=== PATIENT | male | born 1965 | race Caucasian/White ===

== ENCOUNTER 2018-07-22 13:24 | Observation (INO) ==
[2018-07-22] MEDS ORDERED: KETOROLAC TROMETHAMINE 15 MG/ML VIAL IV ONE (14:16)
[2018-07-22] MEDS ORDERED: SODIUM CHLORIDE 0.9% 1000ML 1,000 ML IV ONE (14:17)
[2018-07-22 14:39] LABS: Basophils # (auto) 0.06 K/uL (0-0.2); Basophils % (auto) 0.4 %; Eosinophils % (auto) 0.7 %; Hematocrit (blood only) 43.5 % (42-52); Hemoglobin 15.4 g/dL (14.0-18.0); Immature Granulocytes # (auto) 0.05 K/uL (0.00-0.02); Immature Granulocytes % (auto) 0.4 %; Lymphocytes # (auto) 1.74 K/uL (1.2-3.4); Lymphocytes % (auto) 12.4 %; Mean Corpuscular Hgb Conc 35.4 g/dL (32-36); Mean Corpuscular Volume 88.1 fL (80-100); Mean Platelet Volume 9.9 fL (7.4-10.4); Monocytes # (auto) 1.07 K/uL (0.11-0.59); Monocytes % (auto) 7.6 %; Neutrophils # (auto) 11.06 K/uL (1.4-6.5); Neutrophils % (auto) 78.5 %; Platelet Count 167 K/uL (130-400); RDW Coefficient of Variation 12.7 % (11.5-14.5); RDW Standard Deviation 40.7 fL (36.4-46.3); Red Blood Count 4.94 M/uL (4.7-6.1); White Blood Count 14.08 K/uL (4.8-10.8)
[2018-07-22 14:56] LABS: Albumin Level 3.5 gm/dl (3.4-5.0); BUN Creatinine Ratio 12.9 (10-20); Calcium 9.3 mg/dl (8.5-10.1); Creatinine Clr Calc Pharmacy 112.6 ml/min; Est GFR (Non-African American) 94.1; Potassium 4.2 mmol/L (3.5-5.1)
[2018-07-22 14:59] LABS: Albumin Globulin Ratio 0.8 (0.9-2); Bilirubin,Total 0.9 mg/dl (0.2-1); Globulin 4.4 gm/dl (2.5-4.0); Total Protein 7.9 gm/dl (6.4-8.2)
--- NOTE | 2018-07-22 15:16 | CT Scan Report ---
CT SCAN OF THE ABDOMEN AND PELVIS WITHOUT IV CONTRAST CLINICAL HISTORY: Right lower quadrant abdominal pain. COMPARISON STUDY: Abdominal CT dated 06/13/2017. TECHNIQUE: CT scan of the abdomen and pelvis is performed from the lung bases to the proximal femora. Images are reviewed in the axial, sagittal, and coronal planes. IV contrast was not administered for this examination as per the referring clinician. Note that the examination is suboptimal without IV contrast. A dose lowering technique was utilized adhering to the principles of ALARA. CT DOSE: 578.74 mGy.cm FINDINGS: Lung bases: The heart is normal in size and without pericardial effusion. The lung bases are clear. T here is a small hiatal hernia. Liver: The unenhanced liver is enlarged, measuring 21.7 cm in length. The liver demonstrates diffusel y diminished attenuation consistent with hepatic steatosis. There is no intrahepatic biliary ductal d ilatation. Gallbladder: Unremarkable. Spleen: The spleen is mildly enlarged measuring 14 cm in length. Pancreas: Unremarkable. Adrenal glands: Unremarkable. Kidneys: The unenhanced kidneys are normal in size and without hydronephrosis. There are no renal damari culi identified. There is no evidence of contour deforming renal mass lesion. Cortical scarring is no dave in the lower pole of the right kidney. Abdominal vasculature: The abdominal aorta is normal in course and caliber noting moderate atheroscle rotic calcification. Bowel: There is mild colonic fecal retention. No bowel obstruction is seen. The appendix is distended and fluid-filled, measuring up to 15 mm in diameter as seen on image 309. The appendiceal wall is th ickened and there are several calcified appendicoliths. There is periappendiceal inflammation and flu id, and the appearance is consistent with acute appendicitis. The degree of surrounding inflammation and fluid suggests possible perforation. No organized fluid collection is seen on this unenhanced exa mination to indicate abscess. Peritoneum: There is no intraperitoneal free air. Free fluid is noted in the right lower quadrant in the right paracolic gutter. There is evidence of previous ventral hernia repair. Lymphadenopathy: None. Pelvic viscera: The bladder, prostate, and seminal vesicles are normal as visualized. There are small bilateral fat-containing inguinal hernias. Skeletal structures: No lytic or blastic lesions are seen. IMPRESSION: 1. Findings are consistent with severe acute appendicitis. The degree of surrounding inflammation and fluid suggests possible perforation. 2. No intraperitoneal free air is identified. No organized fluid collection is seen on this unenhance d examination to indicate abscess. 3. Hepatomegaly and hepatic steatosis. 4. Splenomegaly. 5. Additional findings as above. Electronically signed by: Gilberto Casas M.D. 07/22/2018 3:15 PM
[2018-07-22] MEDS ORDERED: PIPERACILL/TAZOBAC CONSULT ACTIVE PRN ×2 (15:32→19:03)
[2018-07-22] MEDS ORDERED: PIPERACILLIN/TAZOBACTAM 4.5 GM/120 ML BAG IV ONE (15:32)
[2018-07-22] MEDS ORDERED: HYDROmorphone INJ 1 MG/ML SYRINGE IV PRN ×2 (15:32→16:36)
--- NOTE | 2018-07-22 16:03 | History & Physical Report ---
Date of Service July 22, 2018 Assessment & Plan (1) Acute appendicitis: Will plan for laparoscopic appendectomy, possible open. Zosyn was given in the ED. as above. acute appendicitis. discussed risks ( bleeding/infection/dvt/pe/mi/cva/injury to another organ etc...) Questions answered. will proceed with lap/possible open appy taqueria. pt has an umbilical hernia that bothers him frequently as well. will attempt to repair also if possible. History of Present Illness 53 y/o male with abdominal pain that began yesterday. Had nausea vomiting last night. Pain persisted today, came to the ED. Hot/cold flashes, anorexia today. Had a few sips of water earlier this morning. Primary Care Provider: Tan Solis MD Allergies Allergy/AdvReac Type Severity Reaction Status Date / Time No Known Allergies Allergy Unverified 07/22/18 14:20 Home Medications Home Medications Medication Instructions Recorded Confirmed Type lisinopril-hydrochlorothiazide 1 tab PO DAILY 07/22/18 07/22/18 History metoprolol tartrate 100 mg PO DAILY 07/22/18 07/22/18 History Past Med/Surg History Medical History Hypertension Inguinal hernia Social History Feels Safe at Home: Yes Smoking Status: Current every day smoker Review of Systems Constitutional: + chills, + malaise and + anorexia Respiratory: no cough and no dyspnea on exertion Cardiovascular: no chest pain and no chest pain with activity Gastrointestinal: + abdominal pain, + nausea and + vomiting Physical Exam Constitutional: WD/WN, vitals as above Respiratory: normal respiratory effort, lungs clear to auscultation Cardiovascular: RRR, no murmur, no edema Gastrointestinal (Abdomen): Percussion/Palpation: + abdomen tender (RLQ), + guarding and + hernia (umbilical) Skin: no rashes, warm and dry Results & Data Vital Signs (Past 12 Hours) Vital Signs Temp Pulse Pulse Resp BP BP Pulse Ox 07/22/18 15:09 90 18 141/91 H 97 07/22/18 13:44 37.2 C 106 H 17 134/[address] DOSE: 578.74 mGy.cm FINDINGS: Lung bases: The heart is normal in size and without pericardial effusion. The lung bases are clear. There is a small hiatal hernia. Liver: The unenhanced liver is enlarged, measuring 21.7 cm in length. The liver demonstrates diffusely diminished attenuation consistent with hepatic steatosis. There is no intrahepatic biliary ductal dilatation. Gallbladder: Unremarkable. Spleen: The spleen is mildly enlarged measuring 14 cm in length. Pancreas: Unremarkable. Adrenal glands: Unremarkable. Kidneys: The unenhanced kidneys are normal in size and without hydronephrosis. There are no renal calculi identified. There is no evidence of contour deforming renal mass lesion. Cortical scarring is noted in the lower pole of the right kidney. Abdominal vasculature: The abdominal aorta is normal in course and caliber noting moderate atherosclerotic calcification. Bowel: There is mild colonic fecal retention. No bowel obstruction is seen. The appendix is distended and fluid-filled, measuring up to 15 mm in diameter as seen on image 309. The appendiceal wall is thickened and there are several calcified appendicoliths. There is periappendiceal inflammation and fluid, and the appearance is consistent with acute appendicitis. The degree of surrounding inflammation and fluid suggests possible perforation. No organized fluid collection is seen on this unenhanced examination to indicate abscess. Peritoneum: There is no intraperitoneal free air. Free fluid is noted in the right lower quadrant in the right paracolic gutter. There is evidence of previous ventral hernia repair. Lymphadenopathy: None. Pelvic viscera: The bladder, prostate, and seminal vesicles are normal as visualized. There are small bilateral fat-containing inguinal hernias. Skeletal structures: No lytic or blastic lesions are seen. IMPRESSION: 1. Findings are consistent with severe acute appendicitis. The degree of surrounding inflammation and fluid suggests possible perforation. 2. No intraperitoneal free air is identified. No organized fluid collection is seen on this unenhanced examination to indicate abscess. 3. Hepatomegaly and hepatic steatosis. 4. Splenomegaly. 5. Additional findings as above. Electronically signed by: Gilberto Casas M.D. 07/22/2018 3:15 PM
[2018-07-22] MEDS ORDERED: GLYCOPYRROLATE 0.2 MG/ML VIAL ONE (16:04)
[2018-07-22] MEDS ORDERED: NEOSTIGMINE METHYLSULFATE 5 MG/5 ML SYR ONE (16:04)
[2018-07-22] MEDS ORDERED: MIDAZOLAM HCL 1 MG/ML 2ML VIAL ONE (16:04)
[2018-07-22] MEDS ORDERED: LIDOCAINE HCL 2% 2 ML VIAL/AMP(20MG/ML) INFIL ONE (16:04)
[2018-07-22] MEDS ORDERED: DEXAMETHASONE SOD INJ 4 MG/ML VIAL ONE (16:04)
[2018-07-22] MEDS ORDERED: PROPOFOL IV EMULSION 10 MG/ML 20 ML VIAL IV ONE (16:04)
[2018-07-22] MEDS ORDERED: fentaNYL citrate 100 MCG/2 ML VIAL ONE ×2 (16:04→17:40)
[2018-07-22] MEDS ORDERED: ONDANSETRON INJ 2 MG/ML 2 ML VIAL ONE (16:04)
[2018-07-22] MEDS ORDERED: BUPIVACAINE/EPINEPHRINE 0.5% MPF 1:200,000 30 ML VIAL ONE (16:10)
[2018-07-22] MEDS ORDERED: NALOXONE HCL 0.4 MG/1 ML VIAL/CARP IV PRN (16:36)
[2018-07-22] MEDS ORDERED: LABETALOL HCL IV 5 MG/ML 20ML IV PRN (16:36)
[2018-07-22] MEDS ORDERED: FLUMAZENIL 0.1 MG/1 ML 10 ML VIAL IV PRN (16:36)
[2018-07-22] MEDS ORDERED: PROMETHAZINE HCL 12.5 MG in SODIUM CHLORIDE 0.9% 50 ML IV PRN (16:36)
[2018-07-22] MEDS ORDERED: ePHEDrine sulfate 50 MG/ML AMP IV PRN (16:36)
[2018-07-22] MEDS ORDERED: ONDANSETRON INJ 2 MG/ML 2 ML VIAL IV PRN ×2 (16:36→19:03)
[2018-07-22] MEDS ORDERED: ATROPINE SULFATE 0.1 MG/ML 10ML SYR IV PRN (16:36)
--- NOTE | 2018-07-22 16:36 | Anesthesiology Consultation ---
Date of Service July 22, 2018 Assessment & Plan Chart Review Chart Review: Acceptable Risk for Surgery and Patient NOT seen in Pre Admission Testing Consults Requested none ASA [id number] Proposed Anesthesia Anesthesia Type: General Risk / Benefits Reviewed With: PT / POA / Parent / Guardian, Accepts Plan and Informed Consent Obtained History Surgery Operation Date: 07/22/18 17:15 Proposed Procedures p Laparoscopic Appendectomy - Dontrell Alegre, DO Height/Weight Height: 6 ft Weight: 97.8 kg Allergies Allergy/AdvReac Type Severity Reaction Status Date / Time No Known Allergies Allergy Unverified 07/22/18 14:20 Medications Home Medications Medication Instructions Recorded Confirmed Last Taken lisinopril-hydrochlorothiazide 1 tab PO DAILY 07/22/18 07/22/18 Unknown metoprolol tartrate 100 mg PO DAILY 07/22/18 07/22/18 Unknown Active Medications Generic Name Dose Route Start Last Admin Trade Name Freq PRN Reason Stop Dose Admin Hydromorphone HCl 1 mg 07/22/18 15:32 07/22/18 15:47 Dilaudid IV 08/05/18 15:31 1 mg Q15M PRN Administration Pain NPO Date Last Intake of Fluids: 07/22/18 Time Last Intake of Fluids: 07:00 Date Last Intake of Solids: 07/21/18 Time Last Intake of Solids: 14:30 Past Medical History Medical History COPD (chronic obstructive pulmonary disease) GERD (gastroesophageal reflux disease) Hypertension Inguinal hernia Obese Exercise / Class Metabolic Activity II 4-5 Yardwork/Stairs/Walk up hill Past Anesthesia History No Hx of Anesthesia Complications and No Family Hx of Anesthesia Complications History of PONV No Hx of PONV and No Hx of Motion Sickness Social History Smoking Status: Heavy tobacco smoker Smoking cigarettes per day: 1 1/2 - 2PPD x 40 + years Physical Exam Vital Signs Last Vital Signs Temp 37.2 C 07/22/18 13:44 Pulse 94 H 07/22/18 16:00 Resp 13 07/22/18 16:00 BP 144/92 H 07/22/18 16:00 Pulse Ox 95 07/22/18 16:00 Constitutional + obese ENMT Mouth: + edentulous and + poor dentition Thyromental Distance: > or= 3.5 Finger Breadths Mallampati Class: II Neck normal visual inspection, trachea midline and + facial hair; neck extension not limited Respiratory normal respiratory effort Auscultation: lungs clear to auscultation bilaterally Cardiovascular Rate/Rhythm: regular rate and regular rhythm Heart Sounds: no murmur Vessels: no carotid bruit Musculoskeletal Spine: normal cervical ROM Neurologic moves all extremities Motor/Sensory: no sensory deficit Psychiatric Orientation: alert and oriented x 3 Testing Laboratory Results WBC: Hcg: Hct: PLATELETS: SODIUM: POTASSIUM: CHLORIDE: CO2: BUN: CREATININE: GLUCOSE: PT: PTT: INR: 07/22/18 14:30 07/22/18 14:30 UA: TYPE AND SCREEN: Electrocardiogram Date: 07/22/18 Findings: + NSR @ (at 93)
[2018-07-22] MEDS ORDERED: SUCCINYLCHOLINE CHLORIDE 20 MG/ML 10 ML VIAL ONE (17:13)
--- NOTE | 2018-07-22 17:57 | Operative Report ---
Post Operative Report Pre & Post Diagnosis Operation Date: 07/22/18 17:15 Pre-Op Diagnosis: acute appendicitis. umbilical hernia. Post-Op Diagnosis: acute appendicitis. adhesions. Procedure Operation Date: 07/22/18 17:15 Actual Procedures p Laparoscopic Appendectomy(Not Applicable) Enterolysis- Dontrell Alegre DO Surgeon Dontrell Alegre DO Manager Of Revenue jef Arriaga Estimated Blood Loss 5 Findings Consistent with Post-Op Diagnosis Specimens appendix Description of Procedure After informed consent was obtained the patient was taken to the operating room and placed in supine position. After successful intubation a Beltran catheter was placed. The abdomen was then shaved and sterilely prepped and draped in usual fashion. The patient had the appearance of an umbilical hernia. This had been bothering him so we made an incision in the supraumbilical region. We carried this down through soft tissue using cautery. Anterior rectus fascia was opened using electrocautery and two #0 Vicryl stay sutures were placed. Peritoneum was entered using blunt finger penetration and a finger sweep was performed. This revealed a mesh that the patient had been unsure of if he had or not. There were adhesions densely adhered to the undersurface. I was able to insert the Sidhu trocar and insufflated the abdomen to 18 mmHg. A 30 degree laparoscope was inserted. We were able to see in the left lower quadrant. I was able to place a suprapubic 5 mm port in the left lower quadrant 12 mm port. We then inserted the camera and looked up at the umbilical trocar site. There were a lot of dense adhesions which made visualization through that port impossible. We therefore placed a left mid abdominal 5 mm trocar. We were able to come t hrough this site and take down the adhesions using the harmonic scalpel. These involved colon and omentum. I suspect these adhesions were the source of his chronic damaris-umbilical pain. There was no recurrent hernia there. Next we placed the patient in a Trendelenburg position and slightly air planed to the left. There was alot of inflammation near the cecum. I was able to roll the cecum medially exposing a necrotic but non perforated appendicitis. There was small amount of purulent fluid in the right lower quadrant and in the pelvis which we immediately suctioned out. The base of the appendix at the junction with the cecum was the only part that was not black and necrotic. I was able to make a small window in the mesoappendix right near its base and transected the appendix with a KE purple cartridge linear stapler. Once this was done I examined the mesentery of the appendix. It was very short and thick and making using a stapler quite difficult. I therefore used a harmonic scalpel to come through the mesentery of the appendix just below the serosa of the appendix itself. Once I completely transected the mesentery I placed the appendix into an Endo Catch bag and removed it from the left lower quadrant incision to keep it away from the surgical mesh. We then thoroughly irrigated the right lower quadrant and the pelvis. There was adequate hemostasis. The staple line looked solid. We ran the small bowel backwards for about 4 5 feet all this was normal. No other gross abnormalities were identified. The trochars were subsequently all removed and the abdomen desufflated. Prior to doing this we did place a 10 flat Jonathan-Bell drain into the right lower quadrant and brought out through the left lower quadrant port site. All wounds were then thoroughly irrigated. The fascia of the camera port was closed using 0 Vicryl in a [id number] fashion. All the wounds were irrigated and closed using 4-0 Monocryl. Half percent Marcaine with epinephrine were injected around all the incisions for postoperative analgesia. Dermabond glue and sterile dressings were applied. The drain was sewn in using 0 Vicryl. The patient was awaken extubated and transferred recovery in stable condition. My physician child welfare assistant was present for the entire case. He will prep the patient. He helped run the camera during my dissection. He also helped with wound closure and dressing placement. I attest to the content of the Intraoperative Record and any orders documented therein. Any exceptions are noted below.
--- NOTE | 2018-07-22 18:32 | Anesthesiology Progress Note ---
Date of Service July 22, 2018 Anesthesia Post Procedure Vital Signs Vital Signs: Temp Pulse Pulse Pulse Resp BP BP 07/22/18 18:20 93 H 20 123/77 07/22/18 18:10 94 H 24 126/74 07/22/18 18:00 37.7 C H 100 H 18 136/96 07/22/18 16:34 37.1 C 94 H 19 140/91 07/22/18 16:00 94 H 13 144/92 H 07/22/18 15:37 102 H 16 07/22/18 15:30 99 H 20 142/90 H 07/22/18 15:09 90 18 141/91 H 07/22/18 13:44 37.2 C 106 H 17 134/84 Pulse Ox 07/22/18 18:20 93 07/22/18 18:10 95 07/22/18 18:00 95 07/22/18 16:34 95 07/22/18 16:00 95 07/22/18 15:37 07/22/18 15:30 07/22/18 15:09 97 07/22/18 13:44 97 Pain Intensity Right Lower Abdomen: Pain Intensity: 3 Transfer of Care Handoff Completed per policy Notes Mental Status: alert / awake / arousable Patient Amnestic to Procedure: Yes Nausea / Vomiting: adequately controlled Pain: adequately controlled Airway Patency, RR, SpO2: stable & adequate BP & HR: stable & adequate Hydration State: stable & adequate Anesthetic Complications: no major complications apparent
[2018-07-22] MEDS ORDERED: MoRPHine SULFATE 4 MG/ML 1 ML CARP\\VIAL IV PRN (19:03)
[2018-07-22] MEDS ORDERED: MoRPHine SULFATE 4 MG/ML 1 ML CARP\\VIAL ONE (19:11)
[2018-07-22] MEDS: NICOTINE 14 MG/24 HR PATCH TD SCH (20:35)
[2018-07-22] MEDS: LACTATED RINGER'S 1,000 ML IV SCH (20:38)
[2018-07-22] MEDS: KETOROLAC 30 MG/ML VIAL IV PRN (20:53)
[2018-07-22] MEDS: PIPERACILLIN/TAZOBACTAM 3.375 GM in DEXTROSE 5% 100 ML IV SCH (21:31)
--- NOTE | 2018-07-22 21:54 | Emergency Department Note ---
Entered by Lyudmila Garcia acting as a scribe for Hussain Walls MD ED Provider Note CHIEF COMPLAINT: Abdominal pain HISTORY OF PRESENT ILLNESS: The patient is a 53 year old male who presents to the Emergency Room with complaints of RLQ abdominal pain that began yesterday around 1200. He notes that the pain is an 8/10 in severity, and the patient notes that deep breaths and movement worsen the abdominal pain. The patient complains of fatigue and not having a BM today, noting that this is very unusual. He denies any current n ausea, but he notes that he was nauseous and vomited once yesterday. Pt denies LOC, headache, fevers, chills, diaphoresis, visual changes, neck pain, chest pain, breathing difficulties, back pain, melena, hematochezia, urinary symptoms, numbness, weakness, lymphadenopathy, rash, or other complaints. He states that he took Ibuprofen, but it provided no relief. REVIEW OF SYSTEMS: See HPI for pertinent positives and negatives. A total of ten systems were reviewed and were otherwise negative. PMHx/PSHx: Hernia surgery SOCIAL HISTORY: Patient lives at home. PHYSICAL EXAM: GENERAL: Awake, alert, uncomfortable-appearing, in no distress HENT: Normocephalic, atraumatic. Oropharynx unremarkable. EYES: PERRL. Normal conjunctiva. Sclera non-icteric. NECK: Inspection normal. Non-tender. Supple. No nuchal rigidity. FROM. No masses. RESPIRATORY: Clear to auscultation. No wheezes. No rales. Normal respiratory effort. CARDIAC: Normal rate. Normal rhythm. No murmurs. No rubs. Extremities warm and well perfused. Pulses equal. No JVD. GI: Soft, non-distended. RLQ tenderness to percussion. He has some rebound and guarding. No masses. RECTAL: Deferred. MUSCULOSKELETAL: Atraumatic. Chest examination reveals no tenderness. The back is symmetrical on inspection without obvious abnormality. There is no CVA tenderness to palpation. No joint edema. LOWER EXTREMITIES: Calves are equal size bilaterally and non-tender. No edema. No discoloration. NEURO: Normal sensorium. No sensory or motor deficits noted. SKIN: No rash or jaundice noted. EMERGENCY DEPARTMENT COURSE: 1414: Past medical records reviewed. The patient was evaluated in room A10, and a complete history and physical examination were performed. 1535: I reevaluated the patient and updated him on the results. 1546: I spoke with Vernon Arriaga PA-C about the patients case. The patient will be admitted under the case of Dr. Alegre. MEDICAL DECISION MAKING: Prior records/ancillary studies reviewed. Triage Nursing notes reviewed and agree them. The patient's history was concerning for abdominal pain. Differential diagnosis: Etiologies such as appendicitis, diverticulitis, PUD, biliary pathology, UTI, pancreatitis, obstruction, mesenteric ischemia, aortic pathology, infections, inflammatory bowel disease, renal colic, as well as others were entertained. Physical examination findings: As above. Peritoneal findings noted. ER treatment provided: IV Toradol IV saline hydration IV Zosyn IV Dilaudid On reassessment the patient felt better. Diagnostics interpreted by me: The labs revealed a moderate leukocytosis on CBC. Chemistry panel LFTs and lipase were negative. Trace blood noted on urinalysis. Imaging studies: He had a pelvis was performed and was concerning for perforated appendicitis. Consultation: A consultation was placed with the general surgery team. The case was discussed and diagnostics were reviewed. The patient was evaluated in the ER for further treatment. IMPRESSION: Perforated appendicitis PLAN: Patient taken emergently to the operating room CRITICAL CARE: I have personally spent greater than 30 minutes of critical care time in the direct management of this patient. This includes bedside care, interpretation of diagnostic studies, and testing, discussion with consultants, patient, and other required patient management activities. This 30 minutes is in excess of all separately billable procedures. The scribe's documentation has been prepared under my direction and personally reviewed by me in its entirety. I confirm that the note above accurately reflects all work, treatment, procedures, and medical decision making performed by me. Impression & Plan Perforated appendicitis Past Med/Surg History Medical History COPD (chronic obstructive pulmonary disease) GERD (gastroesophageal reflux disease) Hypertension Inguinal hernia Obese Social History Preferred Language: Danish Communication Ability: Effective Integrated Circuits Inspector Required: No Beliefs That Will Affect Care: None Current Living Situation: Parent Other Information That Helps Us Care for You: No Feels Safe at Home: Yes Safety Concerns: Feels Safe At This Time Smoking Status: Current every day smoker Tobacco Type: cigarettes Cigarettes Per Day: 30 Do You Dip or Chew Tobacco: Yes Second Hand Exposure: No Tobacco Cessation Education Requested by Patient: No Hx Alcohol Use: Yes Alcohol type: beer Hx Substance Use: No Results & Data Vital Signs Vital Signs - 24 hr 07/22/18 13:44 07/22/18 15:09 07/22/18 15:30 Temperature 37.2 C Temperature Source Oral Sepsis Recent Fever Within 48 Hours No Sepsis New/Unexplained Change in Mental Status No Sepsis Action Taken by Nursing No Action Required Pulse Rate 106 H 99 H Pulse Rate [Apical] Pulse Rate [Right Finger] 90 Pulse Rate from SpO2 Sensor Pulse Rhythm [Apical] Respiratory Rate 17 18 20 Respiratory Effort / Characteristics Non-Labored Respiratory Depth Normal Respiratory Pattern Regular Blood Pressure 134/84 142/90 H Blood Pressure [Right Arm] 141/91 H Blood Pressure Mean 100 107 Blood Pressure Mean [Right Arm] 107 Blood Pressure Position Sitting Blood Pressure Position [Right Arm] Pulse Oximetry 97 97 Oxygen Delivery Method Room Air Room Air Oxygen Flow Rate 07/22/18 15:37 07/22/18 16:00 07/22/18 16:34 Temperature 37.1 C Temperature Source Oral Sepsis Recent Fever Within 48 Hours Sepsis New/Unexplained Change in Mental Status Sepsis Action Taken by Nursing Pulse Rate 102 H 94 H Pulse Rate [Apical] 94 H Pulse Rate [Right Finger] Pulse Rate from SpO2 Sensor 95 H Pulse Rhythm [Apical] Regular Respiratory Rate 16 13 19 Respiratory Effort / Characteristics Non-Labored Spontaneous Respiratory Depth Normal Respiratory Pattern Regular Blood Pressure 144/92 H Blood Pressure [Right Arm] 140/91 Blood Pressure Mean 109 Blood Pressure Mean [Right Arm] 107 Blood Pressure Position Blood Pressure Position [Right Arm] Semi-fowlers Pulse Oximetry 95 95 Oxygen Delivery Method Room Air Oxygen Flow Rate 07/22/18 18:00 Temperature 37.7 C H Temperature Source Temporal Artery Scan Sepsis Recent Fever Within 48 Hours Sepsis New/Unexplained Change in Mental Status Sepsis Action Taken by Nursing Pulse Rate Pulse Rate [Apical] 100 H Pulse Rate [Right Finger] Pulse Rate from SpO2 Sensor Pulse Rhythm [Apical] Regular Respiratory Rate 18 Respiratory Effort / Characteristics Non-Labored Spontaneous Respiratory Depth Normal Respiratory Pattern Regular Blood Pressure Blood Pressure [Right Arm] 136/96 Blood Pressure Mean Blood Pressure Mean [Right Arm] 109 Blood Pressure Position Blood Pressure Position [Right Arm] Lying Pulse Oximetry 95 Oxygen Delivery Method Oxymask Oxygen Flow Rate 10 Home Medications Current Medication List: was personally reviewed by me Laboratory Data Attestation: I reviewed the patient's lab results. Result diagrams: 07/22/18 14:30 07/22/18 14:30 Lab Results 07/22/18 07/22/18 Range/Units 14:30 14:30 WBC 14.08 H (4.8-10.8) K/uL RBC 4.94 (4.7-6.1) M/uL Hgb 15.4 (14.0-18.0) g/dL Hct 43.5 (42-52) % MCV 88.1 (80-100) fL MCH 31.2 (25-34) pg MCHC 35.4 (32-36) g/dL RDW Std Deviation 40.7 (36.4-46.3) fL RDW Coeff of Marlene 12.7 (11.5-14.5) % Plt Count 167 (130-400) K/uL MPV 9.9 (7.4-10.4) fL Immature Gran % (Auto) 0.4 % Neut % (Auto) 78.5 % Lymph % (Auto) 12.4 % [place] % (Auto) 7.6 % Eos % (Auto) 0.7 % Baso % (Auto) 0.4 % Immature Gran # (Auto) 0.05 H (0.00-0.02) K/uL Neut # (Auto) 11.06 H (1.4-6.5) K/uL Lymph # (Auto) 1.74 (1.2-3.4) K/uL [place] # (Auto) 1.07 H (0.11-0.59) K/uL Eos # (Auto) 0.10 (0-0.5) K/uL Baso # (Auto) 0.06 (0-0.2) K/uL Sodium 138 (136-145) mmol/L Potassium 4.2 (3.5-5.1) mmol/L Chloride 105 (98-107) mmol/L Carbon Dioxide 26 (21-32) mmol/L Anion Gap 7.0 (3-11) BUN 12 (7-18) mg/dl Creatinine 0.93 (0.6-1.4) mg/dl Est Cr Clr Drug Dosing 112.6 ml/min Est GFR ( Amer) 109.0 Est GFR (Non-Af Amer) 94.1 BUN/Creatinine Ratio 12.9 (10-20) Glucose 111 H (70-99) mg/dl Calcium 9.3 (8.5-10.1) mg/dl Total Bilirubin 0.9 (0.2-1) mg/dl AST 12 L (15-37) U/L ALT 25 (12-78) U/L Alkaline Phosphatase 74 (45-117) U/L Total Protein 7.9 (6.4-8.2) gm/dl Albumin 3.5 (3.4-5.0) gm/dl Globulin 4.4 H (2.5-4.0) gm/dl Albumin/Globulin Ratio 0.8 L (0.9-2) Lipase 63 L (73-393) U/L Administered Medications Piperacillin Sod/Tazobactam (Sod 3.375 gm/ Dextrose) 115 mls @ 28.75 mls/hr IV Q8H [facility]; Protocol Stop: 08/01/18 21:59 Last Admin: 07/22/18 21:31 Dose: 28.8 mls/hr Documented by: [id number] Lactated Ringer's (Lr) 1,000 mls @ 125 mls/hr IV .Q8H [facility] Stop: 08/21/18 19:29 Last Infusion: 07/22/18 21:34 Dose: 0 mls/hr Documented by: [id number] Admin: 07/22/18 20:38 Dose: 125 mls/hr Documented by: [id number] Ketorolac Tromethamine (Toradol) 30 mg IV Q6H PRN PRN Reason: MODERATE Pain (Scale 4,5,6) Stop: 07/27/18 19:02 Last Admin: 07/22/18 20:53 Dose: 30 mg Documented by: [id number] Nicotine (Nicoderm Cq) 14 [facility] Stop: 08/21/18 19:59 Last Admin: 07/22/18 20:35 Dose: 14 mg Documented by: [id number] Discontinued Medications Bupivacaine HCl/Epinephrine Bitart (Sensorcaine/Epinephrine 0.5% Mpf 1:200,000) Confirm Administered Dose 30 ml .ROUTE .STK-MED ONE Stop: 07/22/18 16:11 Last Admin: 07/22/18 18:02 Dose: 30 ml Documented by: [id number] Hydromorphone HCl (Dilaudid) 1 mg IV Q15M PRN PRN Reason: Pain Stop: 08/05/18 15:31 Last Admin: 07/22/18 15:47 Dose: 1 mg Documented by: [id number] Sodium Chloride (Nss 1000ml) 1,000 mls @ 999 mls/hr IV .Q1H1M ONE Stop: 07/22/18 15:17 Last Infusion: 07/22/18 15:22 Dose: 0 mls/hr Documented by: [id number] Admin: 07/22/18 14:28 Dose: 999 mls/hr Documented by: [id number] Piperacillin Sod/Tazobactam Sod (Zosyn) 4.5 gm in 120 mls @ 240 mls/hr IV NOW ONE Stop: 07/22/18 16:01 Last Infusion: 07/22/18 19:39 Dose: 0 mls/hr Documented by: [id number] Admin: 07/22/18 15:47 Dose: 240 mls/hr Documented by: [id number] Ketorolac Tromethamine (Toradol) 10 mg IV NOW ONE Stop: 07/22/18 14:17 Last Admin: 07/22/18 14:37 Dose: 10 mg Documented by: [id number] Morphine Sulfate (Morphine Sulfate) Confirm Administered Dose 4 mg .ROUTE .STK- MED ONE Stop: 07/22/18 19:12 Last Admin: 07/22/18 19:15 Dose: 4 mg Documented by: [id number] Imaging Data Radiologist's Impression: Radiology results as stated below per my review and the radiologist's interpretation: CT SCAN OF THE ABDOMEN AND PELVIS WITHOUT IV CONTRAST CLINICAL HISTORY: Right lower quadrant abdominal pain. COMPARISON STUDY: Abdominal CT dated 06/13/2017. TECHNIQUE: CT scan of the abdomen and pelvis is performed from the lung bases to the proximal femora. Images are reviewed in the axial, sagittal, and coronal planes. IV contrast was not administered for this examination as per the referring clinician. Note that the examination is suboptimal without IV contra st. A dose lowering technique was utilized adhering to the principles of ALARA. CT DOSE: 578.74 mGy.cm FINDINGS: Lung bases: The heart is normal in size and without pericardial effusion. The lung bases are clear. There is a small hiatal hernia. Liver: The unenhanced liver is enlarged, measuring 21.7 cm in length. The liver demonstrates diffusely diminished attenuation consistent with hepatic steatosis. There is no intrahepatic biliary ductal dilatation. Gallbladder: Unremarkable. Spleen: The spleen is mildly enlarged measuring 14 cm in length. Pancreas: Unremarkable. Adrenal glands: Unremarkable. Kidneys: The unenhanced kidneys are normal in size and without hydronephrosis. There are no renal calculi identified. There is no evidence of contour deforming renal mass lesion. Cortical scarring is noted in the lower pole of the right kidney. Abdominal vasculature: The abdominal aorta is normal in course and caliber noting moderate atherosclerotic calcification. Bowel: There is mild colonic fecal retention. No bowel obstruction is seen. The appendix is distended and fluid-filled, measuring up to 15 mm in diameter as seen on image [id number]. The appendiceal wall is thickened and there are several calcified appendicoliths. There is periappendiceal inflammation and fluid, and the appearance is consistent with acute appendicitis. The degree of surrounding inflammation and fluid suggests possible perforation. No organized fluid collection is seen on this unenhanced examination to indicate abscess. Peritoneum: There is no intraperitoneal free air. Free fluid is noted in the right lower quadrant in the right paracolic gutter. There is evidence of previous ventral hernia repair. Lymphadenopathy: None. Pelvic viscera: The bladder, prostate, and seminal vesicles are normal as v isualized. There are small bilateral fat-containing inguinal hernias. Skeletal structures: No lytic or blastic lesions are seen. IMPRESSION: 1. Findings are consistent with severe acute appendicitis. The degree of surrounding inflammation and fluid suggests possible perforation. 2. No intraperitoneal free air is identified. No organized fluid collection is seen on this unenhanced examination to indicate abscess. 3. Hepatomegaly and hepatic steatosis. 4. Splenomegaly. 5. Additional findings as above. Electronically signed by: Gilberto Casas M.D. 07/22/2018 3:15 PM Blood Pressure Blood Pressure Findings: Elevated blood pressure Additional Comments: further management by surgical team Discharge Plan Visit Data *Final* Discharge Date/Time: 07/22/18 16:05 Chief Complaint: Abdominal Pain Stated Complaint: LOWER ABDOMINAL PAIN ED Provider: Hussain Walls Discharge Problem: Perforated appendicitis Patient Disposition: Admitted As Inpatient Discharge Instructions Interventions: ED Discharge Assessment Last Done: 07/22/18 16:05 The scribe's documentation has been prepared under my direction and personally reviewed by me in its entirety. I confirm that the note above accurately reflects all work, treatment, procedures, and medical decision making performed by me.
[2018-07-23] MEDS: KETOROLAC 30 MG/ML VIAL IV PRN (04:18)
[2018-07-23 04:20] LABS: Appearance Urine Clear (Clear); Bacteria Urine Automated Negative (Negative); Bilirubin Urine Negative (Negative); Color Urine Orange; Epithelial Cell Urine Auto 20-30 /lpf (0-5); Glucose Urine UA Negative (Negative); Ketones Urine Negative (Negative); Leukocyte Esterase Urine Trace (Negative); Nitrite Urine Positive (Negative); Protein Urine Negative (Negative); Specific Gravity Urine 1.029 (1.000-1.030); Urobilinogen Urine Negative (Negative); pH Urine 5.5 (4.5-7.5)
[2018-07-23] MEDS: LACTATED RINGER'S 1,000 ML IV SCH ×2 (05:18→13:33)
[2018-07-23] MEDS: PIPERACILLIN/TAZOBACTAM 3.375 GM in DEXTROSE 5% 100 ML IV SCH ×2 (05:18→13:37)
[2018-07-23 06:45] LABS: Basophils # (auto) 0.02 K/uL (0-0.2); Basophils % (auto) 0.2 %; Eosinophils # (auto) 0.01 K/uL (0-0.5); Eosinophils % (auto) 0.1 %; Hematocrit (blood only) 38.8 % (42-52); Hemoglobin 13.6 g/dL (14.0-18.0); Immature Granulocytes # (auto) 0.03 K/uL (0.00-0.02); Immature Granulocytes % (auto) 0.2 %; Lymphocytes # (auto) 0.71 K/uL (1.2-3.4); Lymphocytes % (auto) 5.5 %; Mean Corpuscular Hgb Conc 35.1 g/dL (32-36); Mean Corpuscular Volume 88.6 fL (80-100); Mean Platelet Volume 10.3 fL (7.4-10.4); Monocytes # (auto) 0.79 K/uL (0.11-0.59); Monocytes % (auto) 6.1 %; Neutrophils # (auto) 11.43 K/uL (1.4-6.5); Neutrophils % (auto) 87.9 %; Platelet Count 163 K/uL (130-400); RDW Coefficient of Variation 12.7 % (11.5-14.5); Red Blood Count 4.38 M/uL (4.7-6.1); White Blood Count 12.99 K/uL (4.8-10.8)
[2018-07-23 07:16] LABS: BUN Creatinine Ratio 12.2 (10-20); Calcium 8.4 mg/dl (8.5-10.1); Creatinine Clr Calc Pharmacy 111.4 ml/min; Est GFR (African American) 107.6; Est GFR (Non-African American) 92.8; Potassium 3.8 mmol/L (3.5-5.1)
--- NOTE | 2018-07-23 07:28 | Surgery Progress Note ---
Date of Service July 23, 2018 Assessment & Plan (1) Perforated appendicitis: POD 1 lap appy WBC 13 advance diet as morales recheck later today as above. doing as expected. will re-eval later today for possible d/c later today or tomorrow. Subjective no complaints, no nausea Physical Exam Gastrointestinal (Abdomen): Inspection/Auscultation: + abdominal surgical in cision (dry) and + abdominal surgical drain present (30 cc overnight) Tmax 37.6 Results & Data Vital Signs (Past 12 Hours) Vital Signs Temp Pulse Resp BP BP Pulse Ox 07/23/18 04:14 37.0 C 96 H 15 129/77 92 07/22/18 22:55 36.7 C 97 H 18 119/77 92 07/22/18 20:55 38.3 C H 100 H 16 142/80 H 90 07/22/18 20:10 37.2 C 07/22/18 19:54 103 H 137/88 93
--- NOTE | 2018-07-23 07:53 | Anesthesiology Progress Note ---
Date of Service July 23, 2018 Anesthesia Post Procedure Vital Signs Vital Signs: Temp Pulse Pulse Pulse Resp BP BP 07/23/18 04:14 37.0 C 96 H 15 129/77 07/22/18 22:55 36.7 C 97 H 18 119/77 07/22/18 20:55 38.3 C H 100 H 16 142/80 H 07/22/18 20:10 37.2 C 07/22/18 19:54 103 H 07/22/18 19:25 37.3 C 102 H 16 07/22/18 18:55 37.6 C H 96 H 16 07/22/18 18:29 37.9 C H 96 H 16 07/22/18 18:20 93 H 20 07/22/18 18:10 94 H 24 07/22/18 18:00 37.7 C H 100 H 18 07/22/18 16:34 37.1 C 94 H 19 07/22/18 16:00 94 H 13 144/92 H 07/22/18 15:37 102 H 16 07/22/18 15:30 99 H 20 142/90 H 07/22/18 15:09 90 18 07/22/18 13:44 37.2 C 106 H 17 134/84 BP Pulse Ox 07/23/18 04:14 92 07/22/18 22:55 92 07/22/18 20:55 90 07/22/18 20:10 07/22/18 19:54 137/88 93 07/22/18 19:25 134/89 93 07/22/18 18:55 128/83 94 07/22/18 18:29 133/83 93 07/22/18 18:20 123/77 93 07/22/18 18:10 126/74 95 07/22/18 18:00 136/96 95 07/22/18 16:34 140/91 95 07/22/18 16:00 95 07/22/18 15:37 07/22/18 15:30 07/22/18 15:09 141/91 H 97 07/22/18 13:44 97 Pain Intensity Right Lower Abdomen: Pain Intensity: 3 Notes Mental Status: alert / awake / arousable and participated in evaluation Nausea / Vomiting: adequately controlled Pain: adequately controlled Airway Patency, RR, SpO2: stable & adequate BP & HR: stable & adequate Hydration State: stable & adequate
[2018-07-23] MEDS: NICOTINE 14 MG/24 HR PATCH TD SCH (08:34)
[2018-07-23] MEDS ORDERED: METOPROLOL TARTRATE 100 MG TAB PO SCH (09:00)
[2018-07-23] MEDS ORDERED: LISINOPRIL/HCTZ 20/12.5MG 1 TAB TAB PO SCH (09:00)
[2018-07-23 12:22] VITALS: TEMP 99.1; O2SAT 94
[2018-07-23 14:17] VITALS: BP 137/88; PULSE 96
--- NOTE | 2018-07-27 10:32 | Discharge Summary ---
PRIMARY DISCHARGE DIAGNOSIS: Gangrenous appendicitis. SECONDARY DISCHARGE DIAGNOSIS: Hypertension. HOSPITAL COURSE: The patient is a 53-year-old male who presented to Emergency Department with a 1-day history of abdominal pain localizing to the right lower quadrant. His white count was 14,000. CT was consistent with severe appendicitis. He was taken to the operating room that afternoon for a laparoscopic appendectomy. He had necrotic appendix but not grossly perforated. VIRAJ drain was placed. He was transferred to the surgical floor for overnight observation. He was continued on IV Zosyn. On postoperative day 1, his white count was improving. He was able to tolerate an advancing diet. Pain was managed with oral analgesics. VIRAJ drainage was 30 mL. He did well throughout the day and stable for discharge home later in the afternoon. VIRAJ drain was removed prior to discharge. DISCHARGE INSTRUCTIONS: Discharge home. Follow up with Dr. Alegre in 2 weeks. DISCHARGE MEDICATIONS: Augmentin 875 mg p.o. b.i.d. x7 days, [place] 1-2 tablets every 4 hours as needed. Continue home medications, metoprolol 100 mg daily, lisinopril/hydrochlorothiazide 1 tablet daily.
== END 2018-07-23 15:02 | disposition home or self-care (01) ==
LOC: ED 13:24 → 3N 16:05 → OR 16:05

== ENCOUNTER 2025-01-14 10:46 | Inpatient (IN) ==
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
[2025-01-14] MEDS: MoRPHine SULFATE 2 MG/ML CARP IV STA (11:34)
[2025-01-14] MEDS: SODIUM CHLORIDE 0.9% 1,000 ML IV SCH ×2 (11:34→15:52)
[2025-01-14 11:41] LABS: Hematocrit (blood only) 47.6 % (42.0-52.0); Hemoglobin 16.5 g/dL (14.0-18.0); Mean Corpuscular Hemoglobin 31.1 pg (25.0-34.0); Mean Corpuscular Volume 89.8 fL (80.0-100.0); Platelet Count 248 K/uL (130-400); RDW Standard Deviation 49.1 fL (36.4-46.3); Red Blood Count 5.30 M/uL (4.70-6.10); White Blood Count 6.21 K/ul (4.8-10.8)
[2025-01-14 11:58] LABS: Alanine Aminotransferase 112.0 U/L (7-52); Albumin Level 4.2 gm/dl (3.4-5.0); Alkaline Phosphatase 89.0 U/L (34-104); Anion Gap 9.0 (3-11); Bilirubin,Total 0.6 mg/dl (0.2-1.0); Blood Urea Nitrogen 13.0 mg/dl (6-23); Calcium 8.9 mg/dl (8.6-10.3); Carbon Dioxide 22.0 mmol/L (21-32); Chloride 102.0 mmol/L (98-107); Creatinine Clr Calc Pharmacy 102.2 ml/min; Glucose 132.0 mg/dl (70-99(Fasting)); Magnesium 1.9 mg/dl (1.7-2.4); Potassium 4.0 mmol/L (3.5-5.1); Sodium 133.0 mmol/L (136-145); Total Protein 8.0 gm/dl (6.0-8.3)
[2025-01-14 12:13] LABS: INR 1.2 (0.9-1.1); Partial Thromboplastin Time 31 Seconds (21-31); Prothrombin Time 13.0 Seconds (9.0-12.0)
[2025-01-14] MEDS: cefTRIAXone SODIUM 2,000 MG/50 ML BAG IV STA (12:17)
[2025-01-14 12:19] LABS: Creatine Kinase 96.0 U/L (30-223)
--- NOTE | 2025-01-14 12:27 | XRay Report ---
Exam: Chest one view portable Reason for exam: Sepsis Previous studies: CT thorax 02/26/2022. FINDINGS: Heart is mildly enlarged without acute CHF. Lungs show no acute infiltrate, collapse or edema. IMPRESSION: Mild cardiomegaly. Otherwise negative for acute disease on portable chest radiograph. Electronically signed by Leroy Merritt 01-14-2025 12:26 PM
[2025-01-14] MEDS: ACETAMINOPHEN 500 MG TAB PO STA (12:47)
[2025-01-14 12:49] LABS: Chlamydia pneumoniae PCR Not Detected (NotDetected); Coronavirus 229E PCR Not Detected (NotDetected); Coronavirus CoV-2 (COVID19)PCR Not Detected (NotDetected); Coronavirus HKU1 PCR Not Detected (NotDetected); Coronavirus NL63 PCR Not Detected (NotDetected); Coronavirus OC43PCR Not Detected (NotDetected); Human Metapneumovirus PCR Not Detected (NotDetected); Parainfluenza Virus 1 PCR Not Detected (NotDetected); Parainfluenza Virus 2 PCR Not Detected (NotDetected); Parainfluenza Virus 3 PCR Not Detected (NotDetected); Parainfluenza Virus 4 PCR Not Detected (NotDetected); Respiratory Syncytial VirusPCR Not Detected (NotDetected); Rhinovirus/Enterovirus PCR Not Detected (NotDetected)
[2025-01-14 12:59] LABS: Immature Granulocytes # (auto) 0.04 K/uL (0.01-0.20); Immature Granulocytes % (auto) 0.6 %
[2025-01-14 13:01] LABS: Polychromasia 1+; Toxic Vacuolation 2+
[2025-01-14] MEDS: DOXYCYCLINE HYCLATE 100 MG CAP PO STA (13:06)
[2025-01-14 13:47] LABS: Appearance Urine Clear (Clear); Bacteria Urine Automated None Seen (None Seen); Cast Urine Automated 0-2 /lpf (0-2); Epithelial Cell Urine Auto 0-2 /hpf (0-2); Glucose Urine UA Negative (Negative); WBC Urine Automated 0-5 /hpf (0-5)
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
--- NOTE | 2025-01-14 14:08 | Communication Note ---
Date of Service: January 14, 2025 Patient will need Humidifier in room and PRN nebs for tracheotomy status Dr Eric whitlock
[2025-01-14 14:34] LABS: Anaplasmosis Smear(Rpt to DOH) Pos for Anaplasma
[2025-01-14] MEDS ORDERED: ALBUTEROL 0.083% NEBU SOLN 3 ML VIAL INH PRN (15:18)
[2025-01-14] MEDS ORDERED: ALBUTEROL HFA 8 GM INHALER INH PRN (15:18)
[2025-01-14] MEDS: ACETAMINOPHEN 500 MG TAB PO PRN (16:51)
[2025-01-14] MEDS: ACETAMINOPHEN SUSP 160 MG/5 ML BTL PO STA (16:52)
[2025-01-14] MEDS: BACITRACIN OINT 14 GM TUBE TOP SCH (20:33)
[2025-01-14] MEDS: METOPROLOL TARTRATE 100 MG TAB PO SCH (20:33)
[2025-01-14] MEDS: HEPARIN SOD 5,000 UNIT/0.5 ML VIAL SQ SCH (20:33)
[2025-01-14] MEDS: IBUPROFEN 600 MG TAB PO STA (20:33)
[2025-01-14] MEDS: DOXYCYCLINE HYCLATE 100 MG in DEXTROSE 5% MINI-B 100 ML IV SCH (21:04)
[2025-01-15] MEDS: ATORVASTATIN 20 MG TAB PO SCH (07:48)
[2025-01-15 09:02] LABS: Hematocrit (blood only) 48.3 % (42.0-52.0); Hemoglobin 16.2 g/dL (14.0-18.0); Mean Corpuscular Hemoglobin 31.3 pg (25.0-34.0); Mean Corpuscular Volume 93.2 fL (80.0-100.0); Platelet Count 198 K/uL (130-400); RDW Standard Deviation 52.5 fL (36.4-46.3); Red Blood Count 5.18 M/uL (4.70-6.10); White Blood Count 4.18 K/ul (4.8-10.8)
[2025-01-15 09:20] LABS: Alanine Aminotransferase 98.0 U/L (7-52); Albumin Globulin Ratio 1.1 (0.9-2); Albumin Level 4.1 gm/dl (3.4-5.0); Alkaline Phosphatase 97.0 U/L (34-104); Anion Gap 5.0 (3-11); Bilirubin,Total 0.6 mg/dl (0.2-1.0); Blood Urea Nitrogen 13.0 mg/dl (6-23); Calcium 8.6 mg/dl (8.6-10.3); Carbon Dioxide 26.0 mmol/L (21-32); Chloride 103.0 mmol/L (98-107); Creatinine Clr Calc Pharmacy 123.3 ml/min; Globulin 3.9 gm/dl (2.5-4.0); Glucose 104.0 mg/dl (70-99(Fasting)); Magnesium 2.1 mg/dl (1.7-2.4); Potassium 4.0 mmol/L (3.5-5.1); Sodium 134.0 mmol/L (136-145); Total Protein 8.0 gm/dl (6.0-8.3)
[2025-01-15 10:03] LABS: Immature Granulocytes # (auto) 0.02 K/uL (0.01-0.20); Immature Granulocytes % (auto) 0.5 %; Polychromasia 1+; Toxic Vacuolation 2+
--- NOTE | 2025-01-15 11:32 | Hospitalist Progress Note ---
Date of Service January 15, 2025 Assessment & Plan (1) Anaplasmosis: Plan: Came in with the generalized pain for the last 1 week with history of tick bite about 2 weeks back Complaining of fever for the last 2 days Bloody smear came back positive for Anaplasma and started on intravenous doxycycline Elevated liver enzymes secondary Blood cultures were taken given the history of asplenia secondary to surgery Will check Lyme titer 01/15 Currently pt afebrile, feels improved. Muscle ache improved. Appetite improved. (2) COPD (chronic obstructive pulmonary disease): Plan: No acute exacerbation Will continue his usual medications (3) Hypertension: Plan: Has been on lisinopril and also beta-tim, continued (4) GERD (gastroesophageal reflux disease): (5) Liver enzyme elevation: Plan: Elevated liver enzymes likely secondary to anaplasmosis Will monitor LFTs while in the hospital (6) Laryngeal cancer: Plan: Status post laryngectomy and also radiation therapy Has tracheostomy Will need humidifier in the room and nebulized bronchodilator as DVT prophylaxis Subcu heparin CODE STATUS Full Admission and Anticipated Discharge Date Admission Date: January 14, 2025 Subjective Pt seen in follow up Presents with fever and muscle ache, hx of tick bite. + for anaplasma in ER and started on antibiotic Today pt seen sitting up in chair, feeling much better, he is talking to his friend in the room Now afebrile, muscle ache improved, pt says also his appetite is improved, he didn't eat since Thursday Review of Systems Review of Systems: All systems reviewed & are unremarkable except as noted in Subjective Physical Exam Physical Exam: Physical Exam: sitting up in gretta ir in NAD Constitutional: well developed, we ll nourished, M in NAD Eyes: PERRL, conjunctiva e normal, anicteri c sclerae ENMT: external ear and n ose normal Neck: Status post trach eostomy and laryng ectomy Respiratory: no respiratory dis tress Auscultatio n: lungs clear to auscultation bilat erally Cardiovascular: Rate/Rhythm: regul ar rate, regular r hythm, + murmur E xtremities: no ela ma Gastrointestinal ( Abdomen): Inspection/Auscult ation: normal adeel l sounds; abdomen not distended Per cussion/Palpation: abdomen soft; abd omen nontender E vidence of prior s urgery for splenec herbert and ventral h ernia repair and a lso appendectomy Musculoskeletal: moves extremities Neurologic: awake,alert, answe rs appropriately, moves all extremit ies Psychiatric: A+Ox3, euthymic af fect Results & Data Results & Data Vital Signs (Past 12 Hours) Vital Signs Temp Pulse Pulse Pulse Resp BP Pulse Ox 01/15/25 07:50 36.7 C 77 20 117/80 93 01/15/25 04:00 36.7 C 79 18 126/76 99 01/15/25 00:00 84 01/14/25 23:34 36.8 C 80 18 114/74 96 O2 Del Method 01/15/25 07:50 Room Air 01/15/25 04:00 Room Air 01/15/25 00:00 01/14/25 23:34 Room Air Laboratory Results 01/15/25 01/14/25 01/14/25 Range/Units 08:38 Unknown 13:16 WBC 4.18 L (4.8-10.8) K/ul RBC 5.18 (4.70-6.10) M/uL Hgb 16.2 (14.0-18.0) g/dL Hct 48.3 (42.0-52.0) % MCV 93.2 (80.0-100.0) fL MCH 31.3 (25.0-34.0) pg MCHC 33.5 (32.0-36.0) g/dL RDW Std Deviation 52.5 H (36.4-46.3) fL RDW Coeff of Marlene 15.3 H (11.5-14.5) % Plt Count 198 (130-400) K/uL MPV 10.8 (9.4-12.4) fL Immature Gran % (Auto) 0.5 % Neut % (Auto) 74.3 % Lymph % (Auto) 16.7 % Iron % (Auto) 6.9 % Eos % (Auto) 0.2 % Baso % (Auto) 1.4 % Neut # (Auto) 3.10 (1.40-6.50) K/uL Lymph # (Auto) 0.70 L (1.20-3.40) K/uL Iron # (Auto) 0.29 (0.11-0.59) K/uL Eos # (Auto) 0.01 (0.00-0.50) K/uL Baso # (Auto) 0.06 (0.00-0.20) K/uL Immature Gran # (Auto) 0.02 (0.01-0.20) K/uL Toxic Vacuolation 2+ Polychromasia 1+ Peripher Smr Path Cons PT (9.0-12.0) Seconds INR (0.9-1.1) APTT (21-31) Seconds PTT Ratio Sodium 134 L (136-145) mmol/L Potassium 4.0 (3.5-5.1) mmol/L Chloride 103 (98-107) mmol/L Carbon Dioxide 26 (21-32) mmol/L Anion Gap 5 (3-11) BUN 13 (6-23) mg/dl Creatinine 0.84 (0.6-1.4) mg/dl Est Cr Clr Drug Dosing 123.3 ml/min eGFR 101.08 BUN/Creatinine Ratio 15.5 (10-20) Glucose 104 H (70-99(Fasting)) mg/dl Lactate (0.4-2.0) mmol/L Calcium 8.6 (8.6-10.3) mg/dl Phosphorus 1.6 L (2.5-4.9) mg/dl Magnesium 2.1 (1.7-2.4) mg/dl Total Bilirubin 0.6 (0.2-1.0) mg/dl Direct Bilirubin (0-0.2) mg/dl AST 85 H (13-39) U/L ALT 98 H (7-52) U/L Alkaline Phosphatase 97 (34-104) U/L Total Creatine Kinase (30-223) U/L Troponin I High Sens (0-20) pg/ml Total Protein 8.0 (6.0-8.3) gm/dl Albumin 4.1 (3.4-5.0) gm/dl Globulin 3.9 (2.5-4.0) gm/dl Albumin/Globulin Ratio 1.1 (0.9-2) Procalcitonin (0-0.5) ng/ml Urine Color Urine Appearance (Clear) Urine pH (4.5-7.5) Ur Specific [place] (1.000-1.030) Urine Protein (Negative) Urine Glucose (UA) (Negative) Urine Ketones (Negative) Urine Blood (Negative) Urine Nitrite (Negative) Urine Bilirubin (Negative) Urine Urobilinogen (Negative) Ur Leukocyte Esterase (Negative) Urine WBC (Auto) (0-5) /hpf Urine RBC (Auto) (0-2) /hpf U Hyaline Cast (Auto) (0-2) /lpf U Epithel Cells (Auto) (0-2) /hpf Urine Bacteria (Auto) (None Seen) Urine Comment Adenovirus (PCR) Not Detected (NotDetected) Anaplasma Smear A. phagocytophilum DNA Pending Anaplasma Comment Babesia Smear Babesia microti DNA PCR Pending B. pertussis DNA (PCR) Not Detected (NotDetected) B.parapertussis DNA PCR Not Detected (NotDetected) Lyme Disease Screen (Negative) C. pneumoniae DNA (PCR) Not Detected (NotDetected) Coronavirus OC43 (PCR) Not Detected (NotDetected) Coronavirus HKU1 (PCR) Not Detected (NotDetected) Coronavirus 229E (PCR) Not Detected (NotDetected) SARS-CoV-2 (PCR) Not Detected (NotDetected) Coronavirus NL63 (PCR) Not Detected (NotDetected) Ehrlichia DNA (PCR) Human Metapneumovir PCR Not Detected (NotDetected) Influenza Type A (PCR) Not Detected (NotDetected) Influenza Type B (PCR) Not Detected (NotDetected) M. pneumoniae (PCR) Not Detected (NotDetected) Parainfluenza 1 (PCR) Not Detected (NotDetected) Parainfluenza 2 (PCR) Not Detected (NotDetected) Parainfluenza 3 (PCR) Not Detected (NotDetected) Parainfluenza 4 (PCR) Not Detected (NotDetected) Q Fever Phase I IgG Ab Pending Q Fever Phase I IgM Ab Pending Q Fever Phase II IgG Ab Pending Q Fever Phase II IgM Ab Pending RSV (PCR) Not Detected (NotDetected) Entero/Rhino (PCR) Not Detected (NotDetected) Rickettsia IgG Ab Pending Rickettsia IgM Ab Pending Typhus Fever IgG Ab Pending Typhus Fever IgM Ab Pending Blood Parasites ID Present 01/14/25 01/14/25 01/14/25 Range/Units 12:45 11:27 11:27 WBC (4.8-10.8) K/ul RBC (4.70-6.10) M/uL Hgb (14.0-18.0) g/dL Hct (42.0-52.0) % MCV (80.0-100.0) fL MCH (25.0-34.0) pg MCHC (32.0-36.0) g/dL RDW Std Deviation (36.4-46.3) fL RDW Coeff of Marlene (11.5-14.5) % Plt Count (130-400) K/uL MPV (9.4-12.4) fL Immature Gran % (Auto) % Neut % (Auto) % Lymph % (Auto) % Iron % (Auto) % Eos % (Auto) % Baso % (Auto) % Neut # (Auto) (1.40-6.50) K/uL Lymph # (Auto) (1.20-3.40) K/uL Iron # (Auto) (0.11-0.59) K/uL Eos # (Auto) (0.00-0.50) K/uL Baso # (Auto) (0.00-0.20) K/uL Immature Gran # (Auto) (0.01-0.20) K/uL Toxic Vacuolation Polychromasia Peripher Smr Path Cons PT (9.0-12.0) Seconds INR (0.9-1.1) APTT (21-31) Seconds PTT Ratio Sodium (136-145) mmol/L Potassium (3.5-5.1) mmol/L Chloride (98-107) mmol/L Carbon Dioxide (21-32) mmol/L Anion Gap (3-11) BUN (6-23) mg/dl Creatinine (0.6-1.4) mg/dl Est Cr Clr Drug Dosing ml/min eGFR BUN/Creatinine Ratio (10-20) Glucose (70-99(Fasting)) mg/dl Lactate (0.4-2.0) mmol/L Calcium (8.6-10.3) mg/dl Phosphorus (2.5-4.9) mg/dl Magnesium (1.7-2.4) mg/dl Total Bilirubin (0.2-1.0) mg/dl Direct Bilirubin (0-0.2) mg/dl AST (13-39) U/L ALT (7-52) U/L Alkaline Phosphatase (34-104) U/L Total Creatine Kinase (30-223) U/L Troponin I High Sens (0-20) pg/ml Total Protein (6.0-8.3) gm/dl Albumin (3.4-5.0) gm/dl Globulin (2.5-4.0) gm/dl Albumin/Globulin Ratio (0.9-2) Procalcitonin (0-0.5) ng/ml Urine Color Dark Yellow Urine Appearance Clear (Clear) Urine pH 6.0 (4.5-7.5) Ur Specific [place] 1.033 H (1.000-1.030) Urine Protein 1+ H (Negative) Urine Glucose (UA) Negative (Negative) Urine Ketones Trace H (Negative) Urine Blood 1+ H (Negative) Urine Nitrite Negative (Negative) Urine Bilirubin 1+ H (Negative) Urine Urobilinogen Negative (Negative) Ur Leukocyte Esterase Negative (Negative) Urine WBC (Auto) 0-5 (0-5) /hpf Urine RBC (Auto) 6-10 H (0-2) /hpf U Hyaline Cast (Auto) 0-2 (0-2) /lpf U Epithel Cells (Auto) 0-2 (0-2) /hpf Urine Bacteria (Auto) None Seen (None Seen) Urine Comment Adenovirus (PCR) (NotDetected) Anaplasma Smear Cancelled A. phagocytophilum DNA Anaplasma Comment Pos for Anaplasma Babesia Smear Cancelled See Comment Babesia microti DNA PCR B. pertussis DNA (PCR) (NotDetected) B.parapertussis DNA PCR (NotDetected) Lyme Disease Screen Negative (Negative) C. pneumoniae DNA (PCR) (NotDetected) Coronavirus OC43 (PCR) (NotDetected) Coronavirus HKU1 (PCR) (NotDetected) Coronavirus 229E (PCR) (NotDetected) SARS-CoV-2 (PCR) (NotDetected) Coronavirus NL63 (PCR) (NotDetected) Ehrlichia DNA (PCR) Pending Human Metapneumovir PCR (NotDetected) Influenza Type A (PCR) (NotDetected) Influenza Type B (PCR) (NotDetected) M. pneumoniae (PCR) (NotDetected) Parainfluenza 1 (PCR) (NotDetected) Parainfluenza 2 (PCR) (NotDetected) Parainfluenza 3 (PCR) (NotDetected) Parainfluenza 4 (PCR) (NotDetected) Q Fever Phase I IgG Ab Q Fever Phase I IgM Ab Q Fever Phase II IgG Ab Q Fever Phase II IgM Ab RSV (PCR) (NotDetected) Entero/Rhino (PCR) (NotDetected) Rickettsia IgG Ab Rickettsia IgM Ab Typhus Fever IgG Ab Typhus Fever IgM Ab Blood Parasites ID Present 01/14/25 Range/Units 11:27 WBC 6.21 (4.8-10.8) K/ul RBC 5.30 (4.70-6.10) M/uL Hgb 16.5 (14.0-18.0) g/dL Hct 47.6 (42.0-52.0) % MCV 89.8 (80.0-100.0) fL MCH 31.1 (25.0-34.0) pg MCHC 34.7 (32.0-36.0) g/dL RDW Std Deviation 49.1 H (36.4-46.3) fL RDW Coeff of Marlene 14.9 H (11.5-14.5) % Plt Count 248 (130-400) K/uL MPV 10.6 (9.4-12.4) fL Immature Gran % (Auto) 0.6 % Neut % (Auto) 91.1 % Lymph % (Auto) 5.0 % Iron % (Auto) 1.9 % Eos % (Auto) 0.0 % Baso % (Auto) 1.4 % Neut # (Auto) 5.65 (1.40-6.50) K/uL Lymph # (Auto) 0.31 L (1.20-3.40) K/uL Iron # (Auto) 0.12 (0.11-0.59) K/uL Eos # (Auto) 0.00 (0.00-0.50) K/uL Baso # (Auto) 0.09 (0.00-0.20) K/uL Immature Gran # (Auto) 0.04 (0.01-0.20) K/uL Toxic Vacuolation 2+ Polychromasia 1+ Peripher Smr Path Cons Pending PT 13.0 H (9.0-12.0) Seconds INR 1.2 H (0.9-1.1) APTT 31 (21-31) Seconds PTT Ratio 1.1 Sodium 133 L (136-145) mmol/L Potassium 4.0 (3.5-5.1) mmol/L Chloride 102 (98-107) mmol/L Carbon Dioxide 22 (21-32) mmol/L Anion Gap 9 (3-11) BUN 13 (6-23) mg/dl Creatinine 1.03 (0.6-1.4) mg/dl Est Cr Clr Drug Dosing 102.2 ml/min eGFR 84.20 BUN/Creatinine Ratio 12.6 (10-20) Glucose 132 H (70-99(Fasting)) mg/dl Lactate 1.5 (0.4-2.0) mmol/L Calcium 8.9 (8.6-10.3) mg/dl Phosphorus (2.5-4.9) mg/dl Magnesium 1.9 (1.7-2.4) mg/dl Total Bilirubin 0.6 (0.2-1.0) mg/dl Direct Bilirubin 0.2 (0-0.2) mg/dl AST 78 H (13-39) U/L ALT 112 H (7-52) U/L Alkaline Phosphatase 89 (34-104) U/L Total Creatine Kinase 96 (30-223) U/L Troponin I High Sens 10.2 (0-20) pg/ml Total Protein 8.0 (6.0-8.3) gm/dl Albumin 4.2 (3.4-5.0) gm/dl Globulin (2.5-4.0) gm/dl Albumin/Globulin Ratio (0.9-2) Procalcitonin 0.62 H (0-0.5) ng/ml Urine Color Urine Appearance (Clear) Urine pH (4.5-7.5) Ur Specific [place] (1.000-1.030) Urine Protein (Negative) Urine Glucose (UA) (Negative) Urine Ketones (Negative) Urine Blood (Negative) Urine Nitrite (Negative) Urine Bilirubin (Negative) Urine Urobilinogen (Negative) Ur Leukocyte Esterase (Negative) Urine WBC (Auto) (0-5) /hpf Urine RBC (Auto) (0-2) /hpf U Hyaline Cast (Auto) (0-2) /lpf U Epithel Cells (Auto) (0-2) /hpf Urine Bacteria (Auto) (None Seen) Urine Comment Adenovirus (PCR) (NotDetected) Anaplasma Smear See Comment A A. phagocytophilum DNA Anaplasma Comment Babesia Smear Babesia microti DNA PCR B. pertussis DNA (PCR) (NotDetected) B.parapertussis DNA PCR (NotDetected) Lyme Disease Screen (Negative) C. pneumoniae DNA (PCR) (NotDetected) Coronavirus OC43 (PCR) (NotDetected) Coronavirus HKU1 (PCR) (NotDetected) Coronavirus 229E (PCR) (NotDetected) SARS-CoV-2 (PCR) (NotDetected) Coronavirus NL63 (PCR) (NotDetected) Ehrlichia DNA (PCR) Human Metapneumovir PCR (NotDetected) Influenza Type A (PCR) (NotDetected) Influenza Type B (PCR) (NotDetected) M. pneumoniae (PCR) (NotDetected) Parainfluenza 1 (PCR) (NotDetected) Parainfluenza 2 (PCR) (NotDetected) Parainfluenza 3 (PCR) (NotDetected) Parainfluenza 4 (PCR) (NotDetected) Q Fever Phase I IgG Ab Q Fever Phase I IgM Ab Q Fever Phase II IgG Ab Q Fever Phase II IgM Ab RSV (PCR) (NotDetected) Entero/Rhino (PCR) (NotDetected) Rickettsia IgG Ab Rickettsia IgM Ab Typhus Fever IgG Ab Typhus Fever IgM Ab Blood Parasites ID Medications Administered Current Inpatient Medications Acetaminophen (Acetaminophen 500 Mg Tab) 1,000 mg PO Q8H PRN PRN Reason: pain 1-5 Stop: 02/13/25 16:32 Last Admin: 01/14/25 16:51 Dose: 1,000 mg Albuterol (Albuterol Hfa 8 Gm Inhaler) 2 puffs INH Q4H PRN PRN Reason: SHORT OF BREATH Stop: 02/13/25 15:17 Albuterol (Albuterol 0.083% Nebu Soln 3 Ml Vial) 2.5 mg INH Q4H PRN; Protocol PRN Reason: Shortness Of Breath Or Wheezing Stop: 02/13/25 15:17 Atorvastatin Calcium (Atorvastatin 20 Mg Tab) 20 mg PO QAM [facility] Stop: 02/14/25 08:59 Last Admin: 01/15/25 07:48 Dose: 20 mg Bacitracin (Bacitracin Oint 14 Gm Tube) 1 appln TOP BID TIARRA Stop: 02/13/25 20:59 Last Admin: 01/15/25 07:49 Dose: 1 appln Heparin Sodium (Porcine) (Heparin Sod 5,000 Unit/0.5 Ml Vial) 5,000 units SQ Q12 TIARRA Stop: 02/13/25 20:59 Last Admin: 01/15/25 07:46 Dose: 5,000 units Doxycycline Hyclate 100 mg/ (Dextrose) 100 mls @ 50 mls/hr IV Q12H TIARRA Stop: 01/27/25 23:59 Last Infusion: 01/15/25 13:23 Dose: Infused Lisinopril (Lisinopril 10 Mg Tab) 10 mg PO DAILY [facility] Stop: 02/15/25 08:59 Oxycodone HCl (Oxycodone Hcl Ir 5 Mg Tab (Immediate Release)) 5 mg PO Q6H PRN PRN Reason: pain 6-10 Stop: 01/28/25 15:17 Last Admin: 01/14/25 15:51 Dose: 5 mg
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
--- NOTE | 2025-01-15 17:22 | XCELERA ---
[id number]
--- NOTE | 2025-01-15 19:48 | Electrocardiogram Report ---
Test Reason : Blood Pressure : */* mmHG Vent. Rate : 123 BPM Atrial Rate : 123 BPM P-R Int : 142 ms QRS Dur : 96 ms QT Int : 310 ms P-R-T Axes : 61 64 44 degrees QTcB Int : 443 ms Sinus tachycardia Possible Left atrial enlargement Borderline ECG When compared with ECG of 04-Jan-2020 12:10, Vent. rate has increased by 50 bpm Confirmed by Shaila Baez (Amrita) on 01/15/2025 7:48:30 PM Referred By: REFERRED SELF Confirmed By: Shaila Baez
[2025-01-16 07:09] LABS: Hematocrit (blood only) 44.2 % (42.0-52.0); Hemoglobin 15.0 g/dL (14.0-18.0); Mean Corpuscular Hemoglobin 31.3 pg (25.0-34.0); Mean Corpuscular Volume 92.1 fL (80.0-100.0); Platelet Count 200 K/uL (130-400); RDW Standard Deviation 51.8 fL (36.4-46.3); Red Blood Count 4.80 M/uL (4.70-6.10); White Blood Count 4.54 K/ul (4.8-10.8)
[2025-01-16 07:37] LABS: Anion Gap 5.0 (3-11); Blood Urea Nitrogen 10.0 mg/dl (6-23); Calcium 8.2 mg/dl (8.6-10.3); Carbon Dioxide 26.0 mmol/L (21-32); Chloride 105.0 mmol/L (98-107); Creatinine Clr Calc Pharmacy 141.9 ml/min; Glucose 98.0 mg/dl (70-99(Fasting)); Magnesium 2.0 mg/dl (1.7-2.4); Potassium 4.2 mmol/L (3.5-5.1); Sodium 136.0 mmol/L (136-145)
[2025-01-16] MEDS ORDERED: SODIUM PHOSPHATE 3 MMOL/1 ML INFUSION IV STA (08:38)
[2025-01-16] MEDS: SODIUM PHOSPHATE 9 MMOL in SODIUM CHLORIDE 0.9% 250 ML IV ONE (10:12)
[2025-01-16] MEDS: DOXYCYCLINE HYCLATE 100 MG CAP PO SCH (11:08)
--- NOTE | 2025-01-16 11:38 | Cardiology Progress Note ---
Date of Service January 16, 2025 Assessment & Plan (1) Anaplasmosis: (2) Sinus pause: (3) Aortic stenosis: (4) HTN, goal below 130/80: Plan 59-year-old male admitted on January 14, 2025 with anaplasmosis. Cardiology consultation requested on January 15, 2025 after telemetry revealed sinus pauses up to 3.5 seconds in duration with associated dizziness Prior to arrival metoprolol tartrate 100 mg twice per day discontinued. Last dose received in AM of 01/15. Prescribed for hypertension. Blood pressures acceptable this admission. library monitor with a 3.5-second pause on January 15, 2025 at 10:43 AM. No further pauses or significant bradycardia thereafter. Heart rate currently sinus in the 90s, with intermittent sinus tachycardia. Resting echocardiography on January 15, 2025: EF 55 to 60%. Mildly dilated left atrium. Mild aortic valve stenosis. Mild to moderate aortic regurgitation. Mild pulmonic regurgitation. Mild tricuspid regurgitation. Normal RVSP. Recommendations: * Resume low-dose beta-tim therapy with metoprolol succinate 25 mg/day; benefits, use, and risks discussed. * 14-day ambulatory monitor technician on discharge * Routine surveillance monitoring of the valve issues detailed above * Cardiology follow-up post discharge, after ZIO resulted Admission and Anticipated Discharge Date Admission Date: January 14, 2025 Supervising Physician Co-Signing Physician Notes Attending attestation: Case reviewed with the advanced practitioner. I have personally performed a history and physical examination on the patient. I have reviewed the advanced practitioner's documentation on the date of service referenced in note, and I agree with, and take responsibility for the plan of care. Subjective: Patient describes feeling much improved compared to when he arrived to the hospital. Denies lightheadedness, dizziness, or subjective palpitations. Telemetry reveals sinus rhythm in the 90s. Exam: Cardiovascular: Regular rhythm, no murmurs, no edema Tracheostomy site noted without erythema Telemetry without any additional pauses. Impression/ Plan: Anaplasmosis Bradycardia/3.5-second pause. Bradycardia - Resume low-dose metoprolol beta-tim at lower dose of metoprolol succinate 25 mg daily -Will plan for outpatient court monitor after discharge. Lino Bond, Subjective Patient seen and examined. Chart, medications, telemetry reviewed. Feeling better, well. No further dizziness, near syncope, lightheadedness, palpitations, chest pain, or shortness of breath. Review of Systems Review of Systems: Complete Review of Systems is as stated above, negative, or noncontributory. Physical Exam Physical Exam: General: A&Ox3. NAD. HENT: Normocephalic. Atraumatic. Eyes: PER. Conjunctiva pink, sclera clear. Neck: Trach. No carotid bruits. No overt JVD. Heart: Regular, 90 bpm. Grade II/ systolic ejection murmur. No diastolic murmur. Lungs: Clear to auscultation. Abdomen: +BS. Extremities: Minimal edema on the right. No edema on the left. No cyanosis. Limited neurological examination is without focal deficits. Pulses: Posterior tibial=2/4. Results & Data Vital Signs (Past 12 Hours) Vital Signs Temp Pulse Pulse Resp BP Pulse Ox O2 Del Method 01/16/25 10:51 36.7 C 84 18 135/80 96 Room Air 01/16/25 08:11 36.6 C 78 18 149/81 H 97 Room Air 01/16/25 07:15 72 01/16/25 04:00 36.5 C 77 18 120/62 98 Room Air 01/16/25 00:14 96 H Laboratory Results CBC 01/16/25 Range/Units 06:49 WBC 4.54 L (4.8-10.8) K/ul RBC 4.80 (4.70-6.10) M/uL Hgb 15.0 (14.0-18.0) g/dL Hct 44.2 (42.0-52.0) % Plt Count 200 (130-400) K/uL Comprehensive Metabolic Panel 01/16/25 Range/Units 06:49 Sodium 136 (136-145) mmol/L Potassium 4.2 (3.5-5.1) mmol/L Chloride 105 (98-107) mmol/L Carbon Dioxide 26 (21-32) mmol/L BUN 10 (6-23) mg/dl Creatinine 0.73 (0.6-1.4) mg/dl Glucose 98 (70-99(Fasting)) mg/dl Calcium 8.2 L (8.6-10.3) mg/dl Intake and Output 01/15/25 01/16/25 01/16/25 22:59 06:59 14:59 Intake Total 1360 / 1560 100 / 1560 Balance 1360 / 1560 100 / 1560 Intake: IV 1000 / 1200 100 / 1200 Doxycycline Hyclate 100 mg In 100 / 200 Dextrose 5% Mini-B 100 ml @ 50 mls/hr IV Q12H [facility] Rx#:[id number] Sodium Chloride 0.9% 1,000 ml @ 1000 / 1000 80 mls/hr IV .[id number] [facility] Rx#: [id number] Oral 360 / 360 Other: Other Intake Source 150 Weight 111 kg Weight Measurement Method Built in [facility] PG Care Time/CCT Total # of Minutes Spent Total Time Spent with Patient: Total time spent is greater than 50% in coordination of care (as documented) at patient's floor/unit and/or counseling patient. I spent a total of 40 minutes on the date of service in preparation, delivery, and documentation of the care provided to this patient excluding any time spent in the performance of separately billed services. This visit was a split-shared visit with the substantive portion of the medical decision making performed by the supervising certified medical coding specialist/billing provider, Dr. Bond. Coding Level of Care Code 99772 SUB INP/OBS CARE 2/35MIN Diagnoses Anaplasmosis A77.49 Sinus pause I45.5 Aortic stenosis I35.0 HTN, goal below 130/80 I10
[2025-01-16] MEDS: METOPROLOL SUCC 25MG EXT REL TAB PO SCH (13:49)
--- NOTE | 2025-01-16 17:03 | Hospitalist Progress Note ---
Date of Service January 16, 2025 Assessment & Plan (1) Anaplasmosis: Plan: Came in with the generalized pain for the last 1 week with history of tick bite about 2 weeks back Complaining of fever for the last 2 days Bloody smear came back positive for Anaplasma and started on intravenous doxycycline Elevated liver enzymes secondary Blood cultures were taken given the history of asplenia secondary to surgery Blood cultx - negat. so far Tick borne panel obtained, and full results pending, Lyme negat. 01/15 Currently pt afebrile, feels improved. Muscle ache improved. Appetite improved. (2) COPD (chronic obstructive pulmonary disease): Plan: No acute exacerbation Will continue his usual medications (3) Hypertension: Plan: Has been on lisinopril and also beta-tim - metoprolol dose decreased now to 25 daily (instead of 100 bid) given sinus pauses, cardiology consulted and discussed with, cont. to monitor on tele (4) GERD (gastroesophageal reflux disease): (5) Liver enzyme elevation: Plan: Elevated liver enzymes likely secondary to anaplasmosis Will monitor LFTs while in the hospital (6) Laryngeal cancer: Plan: Status post laryngectomy and also radiation therapy Has tracheostomy Will need humidifier in the room and nebulized bronchodilator as DVT prophylaxis Subcu heparin CODE STATUS Full Admission and Anticipated Discharge Date Admission Date: January 14, 2025 Subjective Pt seen in follow up Presents with fever and muscle ache, hx of tick bite. + for anaplasma in ER and started on antibiotic Today pt seen lying in bed feeling much better Now afebrile, muscle ache improved, pt says also his appetite is improved Had sinus pauses noted on tele -> beta tim dose was adjusted, cardiology following and discussed with Review of Systems Review of Systems: All systems reviewed & are unremarkable except as noted in Subjective Physical Exam Physical Exam: Physical Exam: sitting up in gretta ir in NAD Constitutional: well developed, we ll nourished, M in NAD Eyes: PERRL, conjunctiva e normal, anicteri c sclerae ENMT: external ear and n ose normal Neck: Status post trach eostomy and laryng ectomy Respiratory: no respiratory dis tress Auscultatio n: lungs clear to auscultation bilat erally Cardiovascular: Rate/Rhythm: regul ar rate, regular r hythm, + murmur E xtremities: no ela ma Gastrointestinal ( Abdomen): Inspection/Auscult ation: normal adeel l sounds; abdomen not distended Per cussion/Palpation: abdomen soft; abd omen nontender E vidence of prior s urgery for splenec herbert and ventral h ernia repair and a lso appendectomy Musculoskeletal: moves extremities Neurologic: awake,alert, answe rs appropriately, moves all extremit ies Psychiatric: A+Ox3, euthymic af fect Results & Data Results & Data Vital Signs (Past 12 Hours) Vital Signs Temp Pulse Pulse Resp BP Pulse Ox O2 Del Method 01/16/25 16:00 84 01/16/25 15:52 36.8 C 83 132/82 96 Room Air 01/16/25 12:16 Room Air 01/16/25 10:51 36.7 C 84 18 135/80 96 Room Air 01/16/25 08:11 36.6 C 78 18 149/81 H 97 Room Air 01/16/25 07:15 72 Laboratory Results 01/16/25 01/14/25 Range/Units 06:49 11:27 WBC 4.54 L (4.8-10.8) K/ul RBC 4.80 (4.70-6.10) M/uL Hgb 15.0 (14.0-18.0) g/dL Hct 44.2 (42.0-52.0) % MCV 92.1 (80.0-100.0) fL MCH 31.3 (25.0-34.0) pg MCHC 33.9 (32.0-36.0) g/dL RDW Std Deviation 51.8 H (36.4-46.3) fL RDW Coeff of Marlene 15.3 H (11.5-14.5) % Plt Count 200 (130-400) K/uL MPV 11.0 (9.4-12.4) fL Peripher Smr Path Cons Sodium 136 (136-145) mmol/L Potassium 4.2 (3.5-5.1) mmol/L Chloride 105 (98-107) mmol/L Carbon Dioxide 26 (21-32) mmol/L Anion Gap 5 (3-11) BUN 10 (6-23) mg/dl Creatinine 0.73 (0.6-1.4) mg/dl Est Cr Clr Drug Dosing 141.9 ml/min eGFR 105.46 BUN/Creatinine Ratio 13.7 (10-20) Glucose 98 (70-99(Fasting)) mg/dl Calcium 8.2 L (8.6-10.3) mg/dl Phosphorus 1.8 L (2.5-4.9) mg/dl Magnesium 2.0 (1.7-2.4) mg/dl Medications Administered Current Inpatient Medications Acetaminophen (Acetaminophen 500 Mg Tab) 1,000 mg PO Q8H PRN PRN Reason: pain 1-5 Stop: 02/13/25 16:32 Last Admin: 01/15/25 21:16 Dose: 1,000 mg Albuterol (Albuterol Hfa 8 Gm Inhaler) 2 puffs INH Q4H PRN PRN Reason: SHORT OF BREATH Stop: 02/13/25 15:17 Albuterol (Albuterol 0.083% Nebu Soln 3 Ml Vial) 2.5 mg INH Q4H PRN; Protocol PRN Reason: Shortness Of Breath Or Wheezing Stop: 02/13/25 15:17 Atorvastatin Calcium (Atorvastatin 20 Mg Tab) 20 mg PO QAM [facility] Stop: 02/14/25 08:59 Last Admin: 01/16/25 07:44 Dose: 20 mg Bacitracin (Bacitracin Oint 14 Gm Tube) 1 appln TOP BID [facility] Stop: 02/13/25 20:59 Last Admin: 01/16/25 07:44 Dose: 1 appln Doxycycline Hyclate (Doxycycline Hyclate 100 Mg Cap) 100 mg PO BID [facility] Stop: 01/30/25 10:29 Last Admin: 01/16/25 11:08 Dose: 100 mg Heparin Sodium (Porcine) (Heparin Sod 5,000 Unit/0.5 Ml Vial) 5,000 units SQ Q12 [facility] Stop: 02/13/25 20:59 Last Admin: 01/16/25 07:48 Dose: 5,000 units Lisinopril (Lisinopril 10 Mg Tab) 10 mg PO DAILY [facility] Stop: 02/15/25 08:59 Last Admin: 01/16/25 07:44 Dose: 10 mg Metoprolol Succinate (Metoprolol Succ 25mg Ext Rel Tab) 25 mg PO QAM [facility] Stop: 02/15/25 12:29 Last Admin: 01/16/25 13:49 Dose: 25 mg Oxycodone HCl (Oxycodone Hcl Ir 5 Mg Tab (Immediate Release)) 5 mg PO Q6H PRN PRN Reason: pain 6-10 Stop: 01/28/25 15:17 Last Admin: 01/14/25 15:51 Dose: 5 mg
--- NOTE | 2025-01-16 18:03 | Electrocardiogram Report ---
Test Reason : Blood Pressure : */* mmHG Vent. Rate : 70 BPM Atrial Rate : 70 BPM P-R Int : 184 ms QRS Dur : 100 ms QT Int : 426 ms P-R-T Axes : 63 46 43 degrees QTcB Int : 460 ms Normal sinus rhythm Normal ECG When compared with ECG of 14-Jan-2025 11:35, Vent. rate has decreased by 53 bpm Confirmed by Kush Barrow ([id number]) on 01/16/2025 6:03:02 PM Referred By: REFERRED SELF Confirmed By: Kush Barrow
--- NOTE | 2025-01-16 18:03 | Electrocardiogram Report ---
Test Reason : Blood Pressure : */* mmHG Vent. Rate : 80 BPM Atrial Rate : 80 BPM P-R Int : 170 ms QRS Dur : 96 ms QT Int : 410 ms P-R-T Axes : 62 36 37 degrees QTcB Int : 472 ms Normal sinus rhythm Normal ECG When compared with ECG of 15-Jan-2025 10:55, (unconfirmed) No significant change was found Confirmed by Kush Barrow ([id number]) on 01/16/2025 6:02:58 PM Referred By: REFERRED SELF Confirmed By: Kush Barrow
[2025-01-17 04:53] VITALS: O2SAT 95
[2025-01-17 06:47] LABS: Hematocrit (blood only) 43.8 % (42.0-52.0); Hemoglobin 15.1 g/dL (14.0-18.0); Mean Corpuscular Hemoglobin 30.8 pg (25.0-34.0); Mean Corpuscular Volume 89.2 fL (80.0-100.0); Platelet Count 253 K/uL (130-400); RDW Standard Deviation 48.9 fL (36.4-46.3); Red Blood Count 4.91 M/uL (4.70-6.10); White Blood Count 5.39 K/ul (4.8-10.8)
[2025-01-17 07:12] LABS: Anion Gap 10.0 (3-11); Blood Urea Nitrogen 9.0 mg/dl (6-23); Calcium 8.8 mg/dl (8.6-10.3); Carbon Dioxide 23.0 mmol/L (21-32); Chloride 103.0 mmol/L (98-107); Creatinine Clr Calc Pharmacy 174.9 ml/min; Glucose 90.0 mg/dl (70-99(Fasting)); Magnesium 2.1 mg/dl (1.7-2.4); Potassium 3.9 mmol/L (3.5-5.1); Sodium 136.0 mmol/L (136-145)
[2025-01-17 08:06] VITALS: BP 161/81; PULSE 80; RESP 16; TEMP 98
--- NOTE | 2025-01-17 09:30 | Cardiology Progress Note ---
Date of Service January 17, 2025 Assessment & Plan (1) Anaplasmosis: (2) Sinus pause: (3) Aortic stenosis: (4) HTN, goal below 130/80: Plan 59-year-old male admitted on January 14, 2025 with anaplasmosis. Cardiology consultation requested on 01/15/2025 after telemetry revealed sinus pauses up to 3.5 seconds in duration with associated dizziness, last on 01/15/2025 at 10:43 AM. Prior to arrival metoprolol tartrate 100 mg BID discontinued; last dose received in AM of 01/15. No further pauses or significant bradycardia. Patient notes feeling significantly better overall. Toprol XL 25 mg/day prescribed on 01/16/2025, heart rates in the 70-90 bpm range over the last 24 hours. Resting echocardiography on January 15, 2025: EF 55 to 60%. Mildly dilated left atrium. Mild aortic valve stenosis. Mild to moderate aortic regurgitation. Mild pulmonic regurgitation. Mild tricuspid regurgitation. Normal RVSP. Recommendations: * Discharge on metoprolol succinate 25 mg/day * 14-day ambulatory custom studio coordinator on discharge * Routine surveillance monitoring of the valve issues detailed above * Cardiology follow-up in 6-8 weeks, after ZIO resulted, or as needed. * Please contact with further questions or concerns. Admission and Anticipated Discharge Date Admission Date: January 14, 2025 Supervising Physician Co-Signing Physician Notes Attending attestation: Case reviewed with the advanced practitioner. I have personally performed a history and physical examination on the patient. I have reviewed the advanced practitioner's documentation on the date of service referenced in note, and I agree with, and take responsibility for the plan of care. Subjective:Patient describes feeling well. Telemetry reveals sinus rhythm in the range of 70 bpm to 90 bpm. No additional pauses. Exam: Cardiovascular: Regular rhythm, no murmurs, no edema Tracheostomy site noted without erythema Telemetry without any additional pauses. Impression/ Plan: Anaplasmosis Bradycardia/3.5-second pause. Bradycardia Mild aortic stenosis, mild to moderate aortic regurgitation - Resume low-dose metoprolol beta-tim at lower dose of metoprolol succinate 25 mg daily -Will plan for outpatient power builder developer after discharge. Lino Bond, Subjective Patient seen and examined. Chart, medications, telemetry reviewed. No complaints or concerns. Feeling well. Anxious for discharge. Denies weakness, lightheadedness, dizziness, shortness of breath, chest pain, or palpitations. Telemetry: Sinus rhythm over the last 24 hours, heart rates predominantly 70 to 100 bpm, currently 83 bpm. Review of Systems Review of Systems: Complete Review of Systems is as stated above, negative, or noncontributory. Physical Exam Physical Exam: General: A&Ox3. NAD. HENT: Normocephalic. Atraumatic. Eyes: PER. Conjunctiva pink, sclera clear. Neck: Trach. No carotid bruits. No overt JVD. Heart: Regular, 80 bpm. Grade II/ systolic ejection murmur. No diastolic murmur. Lungs: Clear to auscultation. Abdomen: +BS. Extremities: Trivial edema on the right. No edema on the left. No cyanosis. Limited neurological examination is without focal deficits. Pulses: Posterior tibial=2/4. Results & Data Vital Signs (Past 12 Hours) Vital Signs Temp Pulse Pulse Resp BP Pulse Ox O2 Del Method 01/17/25 08:05 36.7 C 80 16 161/81 H 95 Room Air 01/17/25 07:22 91 H 01/17/25 04:00 36.8 C 85 18 139/80 95 Room Air 01/16/25 23:37 36.8 C 77 18 127/76 96 Room Air 01/16/25 21:56 93 H Laboratory Results CBC 01/17/25 Range/Units 05:44 WBC 5.39 (4.8-10.8) K/ul RBC 4.91 (4.70-6.10) M/uL Hgb 15.1 (14.0-18.0) g/dL Hct 43.8 (42.0-52.0) % Plt Count 253 (130-400) K/uL Comprehensive Metabolic Panel 01/17/25 Range/Units 05:44 Sodium 136 (136-145) mmol/L Potassium 3.9 (3.5-5.1) mmol/L Chloride 103 (98-107) mmol/L Carbon Dioxide 23 (21-32) mmol/L BUN 9 (6-23) mg/dl Creatinine 0.59 L (0.6-1.4) mg/dl Glucose 90 (70-99(Fasting)) mg/dl Calcium 8.8 (8.6-10.3) mg/dl Intake and Output 01/16/25 01/17/25 01/17/25 22:59 06:59 14:59 Intake Total 300 / 553 Balance 300 / 553 Intake: Oral 300 / 300 Other: Weight 110.1 kg Weight Measurement Method Built in [facility] Coding Level of Care Code 81272 SUB INP/OBS CARE 3/50MIN Diagnoses Anaplasmosis A77.49 Sinus pause I45.5 Aortic stenosis I35.0 HTN, goal below 130/80 I10
--- NOTE | 2025-01-17 11:18 | Discharge Summary ---
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 For the last 3 days he has been also having feverish feeling and the pain and weakness has been progressing. He has had a tick bite about 2 weeks ago that he can remember. Denies any chest pain or palpitation, any abdominal pain nausea or vomiting and does not have any problem with urine or bowel habit. He was noted to have increased LFTs and his bloody smear came back positive for anaplasmosis. He has been receiving doxycycline and will be admitted to medical floor for continuation of care. Admission Exam Per Admitting Provider Physical Exam: Lying in bed without any apparent distress Constitutional: well developed, well nourished, + ill appearing and + obese Eyes: PERRL, conjunctivae normal, anicteric sclerae ENMT: external ear and nose normal, oropharynx normal Neck: Status post tracheostomy and laryngectomy Respiratory: no respiratory distress Auscultation: lungs clear to auscultation bilaterally Cardiovascular: Rate/Rhythm: regular rate, regular rhythm and + tachycardic Heart Sounds: normal S1, normal S2 and + murmur Extremities: no edema Gastrointestinal (Abdomen): Inspection/Auscultation: normal bowel sounds; abdomen not distended Percussion/Palpation: abdomen soft; abdomen nontender Evidence of prior surgery for splenectomy and ventral hernia repair and also appendectomy Musculoskeletal: No acute arthritis involving any of the joint Neurologic: normal touch/pain/proprioception and moves all extremities; no focal motor deficits Psychiatric: A+Ox3, euthymic affect Lymphatic: no cervical or axillary lymphadenopathy Principal Diagnosis Anaplasmosis Sinus pause Discharge Exam Physical Exam: sitting up in chair in NAD Constitutional: well developed, well nourished, M in NAD Eyes: PERRL, conjunctivae normal, anicteric sclerae ENMT: external ear and nose normal Neck: Status post tracheostomy and laryngectomy Respiratory: no respiratory distress Auscultation: lungs clear to auscultation bilaterally Cardiovascular: Rate/Rhythm: regular rate, regular rhythm, + murmur Extremities: no edema Gastrointestinal (Abdomen): Inspection/Auscultation: normal bowel sounds; abdomen not distended Percussion/Palpation: abdomen soft; abdomen nontender Evidence of prior surgery for splenectomy and ventral hernia repair and also appendectomy Musculoskeletal: moves extremities Neurologic: awake,alert, answers appropriately, moves all extremities Psychiatric: A+Ox3, euthymic affect Discharge Data Allergies Allergy/AdvReac Type Severity Reaction Status Date / Time No Known Allergies Allergy Verified 07/22/22 10:10 Consultations 01/14/25 12:46 ED Decision to Admit Stat 01/15/25 11:27 Consult Cardiology Routine Hospital Course (1) Anaplasmosis: Came in with the generalized pain for the last 1 week with history of tick bite about 2 weeks back Complaining of fever for the last 2 days Bloody smear came back positive for Anaplasma and started on intravenous doxycycline -> will DC on oral doxycycline to finish the course Elevated liver enzymes secondary Blood cultures were taken given the history of asplenia secondary to surgery Blood cultx - negat. for 48 hrs Tick borne panel obtained, and full results pending, Lyme negat. 01/15- Currently pt afebrile, feels improved. Muscle ache improved. Appetite improved. 01/17 Pt is feeling well and wishes to be discharged. Discussed with cardiology. Pt will need zio patch as outpt. Will DC on metoprolol 25 daily (instead of 100 bid). (2) COPD (chronic obstructive pulmonary disease): No acute exacerbation Will continue his usual medications (3) Hypertension: Has been on lisinopril and also beta-tim - metoprolol dose decreased now to 25 daily (instead of 100 bid) given sinus pauses, cardiology consulted and discussed with, cont. to monitor on tele - lisinopril initially decreased, will resume prior dose, as BP now bit elevated - cont. to hold HCTZ for now - follow up as outpt (4) GERD (gastroesophageal reflux disease): (5) Liver enzyme elevation: Elevated liver enzymes likely secondary to anaplasmosis - cont. treatment for anaplasma, follow up LFTs as outpt (6) Laryngeal cancer: Status post laryngectomy and also radiation therapy Has tracheostomy Total Time Total Time Spent Total Time Spent (In Minutes): 40 Discharge Plan Discharge Items Patient Disposition: Home - Self-Care Reason For Visit: GENERALIZED ACHES, FEVER Discharge Diagnosis: Anaplasmosis Sinus pause Condition on Discharge: Fair Activity: Per Instructions section Non-emergency contact: Primary Care Provider and Straightener Hand Call non-emergency contact if: you have any medication questions and your symptoms worsen Follow-up/Referrals: Tan Solis MD [Primary Care Provider] - (Date & Time 01/24/2025 9:00 AM Provider: Tan Solis MD [facility], [facility] ) Diet: Heart Healthy Addtl Attending Provider Instructions: Follow up with primary care physician and stone operator. The appointment with primary care physician was scheduled for you for 01/24/2025. Finish antibiotic treatment with doxycycline, as prescribed. Your heart medications were adjusted - take metoprolol 25 daily (instead of 100 twice a day). Also for now, do not take hydrochlorothiazide and discuss with your primary care doctor/ stone operator when to resume it. If you can, monitor your blood pressure at home and record your numbers. You will need court recording monitor (Zio) to monitor for abnormal heart rhythm, and follow up with cardiology. Pending Studies at Discharge: Yes Studies:: tick borne labs Stand-Alone Forms: [facility] Localsensor, Smoking Cessation Medications and DC Order Prescriptions: New doxycycline hyclate 100 mg Capsule 100 mg PO BID 10 Days Qty: 20 0RF metoprolol succinate 25 mg Tablet Extended Release 24 Hr 25 mg PO QAM Qty: 30 0RF Continued atorvastatin 20 mg Tablet 20 mg PO QAM albuterol sulfate 2.5 mg /3 mL (0.083 %) Solution For Nebulization 2.5 mg INHALATION DIRECTED PRN (Reason: Shortness Of Breath Or Wheezing) bacitracin zinc 500 unit/gram Ointment 1 applic TOPICAL BID lisinopril 40 mg tablet 40 mg PO DAILY oxycodone 5 mg tablet 5 mg PO Q6H PRN (Reason: pain) Qty: 16 0RF Held hydrochlorothiazide 25 mg tablet 25 mg PO DAILY Hold Instructions: Resume on 01/24/25. discuss w/ primary care doctor if to resume it Discontinued metoprolol tartrate 100 mg tablet 100 mg PO BID Discharge Orders: Discharge Order (Routine); Ordered 01/17/25 Ordered By: Nadir Lo Admission Data Admit Date/Time: 01/14/25 13:34 Attending Provider: Nadir Lo Admit Provider: Tal Abernathy Primary Care Provider: Tan Solis Other Providers: Tal Abernathy; Holden Orr
== END 2025-01-17 12:08 | disposition home or self-care (01) | DRG 869 ==
LOC: ED 10:46 → 2N 13:34 → SUATTDRO 13:34 → 2N 15:02